=== PATIENT | male | born 1990 | race Caucasian/White ===

== ENCOUNTER 2019-10-29 14:57 | Emergency (ER) | payer OTHER, SELFPAY ==
[2019-10-29 15:25] VITALS: BP 126/74; PULSE 73; RESP 18; TEMP 37.3; O2SAT 100
--- NOTE | 2019-10-29 15:54 | ED.GENADULT ---
HPI - General Adult General Chief complaint: Upper Respiratory Infection Stated complaint: Cold/ Flu symptoms Time Seen by Provider: 10/29/19 15:55 Source: patient and RN notes reviewed Mode of arrival: ambulatory Limitations: no limitations History of Present Illness HPI narrative: This is a 29 years old male presented office for evaluation of flulike symptom for 3-day. Symptoms include feeling malaise, headache, coughing, and vomiting. He has not vomited today.However he does not have very much appetite although she he had a cheeseburger before he come here today. No treatment for his symptoms. He does smoke. Related Data Allergies Allergy/AdvReac Type Severity Reaction Status Date / Time No Known Allergies Allergy Verified 10/29/19 15:39 Review of Systems Review of Systems: Narrative: CONSTITUTIONAL: Reports fever, chills ENT: Reports rhinorrhea, congestion, sore throat, otalgia. CARDIOVASCULAR: Denies chest pain RESPIRATORY: Reports productive cough with thick phlegm. GASTROINTESTINAL: Denies abdominal pain, nausea, vomiting, diarrhea. GENITOURINARY: Denies urinary symptoms SKIN: Denies rash MUSCULOSKELETAL: Denies acute back pain NEUROLOGIC: Denies lightheaded PMFSH Comments At time of signature, I agree with nursing past medical, surgical, social and family history. There is no relevant family history pertinent to the presenting complaint. Exam Narrative: Exam Narrative: GENERAL: This is a well-nourished, well-developed patient, ill apparent but not acute distress. EYES: Sclera clear/white. Vision is grossly intact. EARS: External ears normal, auditory canals clear and without drainage, TMs normal without perforation. Hearing grossly intact. NOSE: External nose normal with no obvious nasal discharge, nares without redness, no rhinorrhea. THROAT: Mucous membranes moist, posterior pharynx edematous with drainage NECK: Neck supple, non-tender without lymphadenopathy, masses or thyromegaly. CARDIOVASCULAR: Regular rate and rhythm without murmurs, gallops, or rubs. RESPIRATORY: Clear to auscultation. Breath sounds equal bilaterally. No wheezes, rales, or rhonchi. GASTROINTESTINAL: Abdomen soft, non-tender, nondistended. Bowel sounds are active. No hepato-splenomegaly, or palpable masses. No guarding. SKIN: warm, intact with no suspicious lesions or rash, good texture and turgor. NEURO: awake, alert, and oriented to person, place and time. There were no obvious focal neurologic abnormalities. Steady gait [place] Coma Scale Eye Opening: Spontaneous 4 [place] Coma Scale Motor: Obeys Commands 6 [place] Coma Scale Verbal: Oriented 5 Course Vital Signs Vital signs: Vital Signs Temperature 99.2 F 10/29/19 15:25 Pulse Rate 73 10/29/19 15:25 Respiratory Rate 18 10/29/19 15:25 Blood Pressure 126/74 10/29/19 15:25 Pulse Oximetry 100 10/29/19 15:25 Temperature 99.2 F 10/29/19 15:25 Pulse Rate 73 10/29/19 15:25 Respiratory Rate 18 10/29/19 15:25 Blood Pressure 126/74 10/29/19 15:25 Pulse Oximetry 100 10/29/19 15:25 Medical Decision Making MDM Narrative Medical decision making narrative: Discharge instructions reviewed with patient, as well as provided in writing per nursing staff. The instructions also include specific and strict return/GO TO THE ER as well as f/u information. All questions have been answered, and the patient deny any further questions with discharge and discharge plan. Differential Diagnosis Differential Diagnosis: pneumonia, Allergic Rhinitis, Upper respiratory cough syndrome, Pharyngitis, Sinusitis, Bronchitis, otitis media, viral URI, Asthma/reactive airway disease, influenza Medical Records Medical records reviewed: Yes I reviewed the patient's medical records. Vital Signs Vital Signs: Vital Signs Temperature 99.2 F 10/29/19 15:25 Pulse Rate 73 10/29/19 15:25 Respiratory Rate 18 10/29/19 15:25 Blood Pressure 126/74 10/29/19 15:25 Pulse
== END 2019-10-29 16:29 | disposition home or self-care (01) ==
PROVIDERS: Emergency Provider Nurse Practitioner
DX: J10.1 Influenza due to other identified influenza virus with other respiratory manifestations (principal)
CPT/HCPCS: 87804; 99213; G0463

== ENCOUNTER 2023-10-13 17:53 | Emergency (ER) | payer OTHER, SELFPAY ==
--- NOTE | 2023-10-13 18:03 | ED.DENTAL ---
HPI - Dental/Oral General Chief complaint: Dental/Oral Stated complaint: Infected Tooth on the right side Time Seen by Provider: 10/13/23 18:12 Source: patient Mode of arrival: ambulatory Limitations: no limitations History of Present Illness HPI Narrative: 33-year-old male presents with concern for right upper dental pain and facial swelling. Reports he has also had sinus pressure, congestion for a while. He denies fever. MD Complaint: tooth pain Related Data Allergies Allergy/AdvReac Type Severity Reaction Status Date / Time No Known Allergies Allergy Verified 10/13/23 18:05 Review of Systems Review of Systems: CONSTITUTIONAL: Denies malaise, chills, sweats, or fever. EYES: Denies visual changes ENT: Reports rhinorrhea, congestion. Reports right upper dental pain and facial swelling CARDIOVASCULAR: Denies chest pain, palpitations RESPIRATORY: Denies cough or dyspnea. SKIN: Denies rash or itching. MUSCULOSKELETAL: Denies myalgia. NEUROLOGIC: Denies numbness, weakness, or headache. All systems reviewed & are unremarkable except as noted in HPI and below PMFSH Comments At time of signature, agree with nursing past medical, surgical, social and family history. There is no relevant family history pertinent to the presenting complaint Exam Narrative: GENERAL: Well-appearing, well-nourished, and in no acute distress. HEAD: Normocephalic, atraumatic. EYES: PERRLA, sclera clear ENT: Nares clear, turbinates pink, no rhinorrhea or epistaxis. Mucous membranes moist. TM pearly hastings with sharp light reflex bilaterally; no tragal tenderness. Oropharynx without erythema or lesions. Tonsils not enlarged and without exudate. Missing teeth, broken teeth, caries, right cheek swelling and tenderness NECK: Supple. No lymphadenopathy. CHEST: No respiratory distress. Speaks in full sentences. HEART: Regular rate and rhythm. SKIN: Warm, dry, no visible rash. NEURO: Alert and oriented x3. PSYCH: Normal mood and affect Course Course Emergency Course: Patient is aware of diagnosis, understands and agrees to treatment plan. Anticipatory guidance given. Patient agrees to follow-up as directed and is aware of reasons to seek care at the emergency department. Portions of this record may have been created with voice recognition software Level of Care: Express Care Visit Vital Signs Vital signs: Reviewed. MDM - Dental/Oral MDM Narrative Medical decision making narrative: Patients pain and complaint coupled with physical findings are consistant with dentalgia. There are no focal signs of space occupying lesions that are compromising to the airway; no dysphagia, odynophagia, dysphonia, or dyspnea. No uvular deviation or soft palate edema. Patient is non-toxic appearing. The floor of the mouth is soft with no signs of Jose E's Angina; no induration below mandible, no neck pain. Patient is without trismus or drooling and able to swallow secretions. Patient is felt appropriate for discharge home with dental follow up. Differential Diagnosis Differential diagnosis: Likely gingival abscess, dental caries, toothache, dental abscess, fracture of tooth and aphthous ulcer Critical Care Time Critical Care Time Critical Care Time: No Discharge Plan Discharge Clinical Impression: Dental abscess Patient Disposition: Home, Self-Care Condition: Stable Instructions: Antibiotic Form, Dental Abscess (ED) Additional Instructions: Take antibiotic as directed Avoid temperature extremes May apply heat or ice to the face Gentle brushing and flossing Take 2 extra strength Tylenol, 4 ibuprofen, 80 mg of caffeine at same time. You can do this every 6 hours. Do not do this for more than 2 - 3 days. You can substitute 25 mg Benadryl at nighttime for caffeine to help you sleep. Do this for no more than 3 days. Follow-up with the dentist as soon as possible - see the list provided Prescriptions: New clindamycin HCl 30
[2023-10-13 18:07] VITALS: BP 131/82; PULSE 78; RESP 16; TEMP 37; O2SAT 99
== END 2023-10-13 18:20 | disposition home or self-care (01) ==
PROVIDERS: Emergency Provider Nurse Practitioner
DX: K04.7 Periapical abscess without sinus (principal)
CPT/HCPCS: 99203; G0463

== ENCOUNTER 2023-11-28 11:09 | Emergency (ER) | payer OTHER, SELFPAY ==
[2023-11-28 11:14] VITALS: BP 127/82; PULSE 69; RESP 16; TEMP 36.8; O2SAT 100
--- NOTE | 2023-11-28 11:29 | ED.DENTAL ---
HPI - Dental/Oral General Chief complaint: Dental/Oral Stated complaint: Toothache Source: patient, RN notes reviewed and old records reviewed Mode of arrival: ambulatory Limitations: no limitations History of Present Illness HPI Narrative: 33-year-old male presents to [facility] right dental 3 days. Patient states he was seen here 1 month for same issue and treated with antibiotics. Patient endorses that he and his had had a difficult time getting in to a dentist quickly. Patient has an appt in February. Pt denies fever, nausea, vomiting. Pt has treated at home with ibuprofen with some relief. Patient able to control secretions, patient able to tolerate fluids by mouth. Related Data Allergies Allergy/AdvReac Type Severity Reaction Status Date / Time No Known Allergies Allergy Verified 11/28/23 11:25 Review of Systems Review of Systems: All systems reviewed & are unremarkable except as noted in HPI and below Constitutional: Constitutional: Reports as per HPI, Denies chills, Denies fever(s) and Denies night sweats Eyes: Eyes: Reports no additional eye complaints ENT: Reports system reviewed and no additional complaints, except as documented, Reports dental pain, Reports facial pain, Denies headache(s), Reports mouth pain and Denies sore throat Cardiovascular: Cardiovascular: Reports no additional cardiovascular complaints, Denies chest pain and Denies dyspnea Respiratory: Respiratory: Reports no additional respiratory complaints, Denies cough and Denies dyspnea Musculoskeletal: Musculoskeletal: Reports no additional musculoskeletal complaints Neurologic: Reports system reviewed and no additional complaints, except as documented Psychiatric: Psychiatric: Reports no additional psychiatric complaints PMFSH Comments At the time of my signature, I reviewed and agree with the nursing past medical, surgical, social, and family history. There is no relevant family history pertinent to the patient complaint. Exam Const: General: cooperative, healthy appearing, comfortable, no acute distress, alert and well nourished Nutritional Appearance: well nourished Orientation/consciousness: patient oriented x3 Limitations: no limitations HENMT: Head: normal to inspection Ears: external ears normal Face/Nose/Sinus: Normal external nose present, Normal nares present, normal facial exam, No erythema and No edema Face and sinus: normal facial exam, no erythema and no edema Mouth: Yes tongue normal, Yes moist mucous membranes and Yes Abnormal oral and palatal mucosa present Teeth and gingiva: abnormal tooth and associated gingiva, caries, gingiva abnormal edematous, diffusely erythematous and tender and poor dentition Throat: posterior oropharynx normal, tonsils normal and uvula midline Eyes: General: appearance normal, both eyes and all related structures Neck: Neck: normal visual inspection, full ROM and no meningeal signs Lymphatic: no lymphadenopathy noted and no lymphedema noted Chest: Chest palpation & inspection: normal inspection of the chest Resp: Effort & Inspection: normal respiratory effort and able to speak in complete sentences Auscultation: clear to auscultation bilaterally Cardio: Jugular venous distension: no JVD Rate: regular rate Rhythm: regular rhythm Back/Spine/Pelvis: Cervical Spine: cervical ROM normal Skin: General skin exam: normal color, no rashes or lesions noted and turgor normal Neuro: General: patient oriented x3, gait normal, moves all extremities and no meningeal signs Speech: normal speech Gait exam (Neuro): Normal gait present Extrem: General: normal to inspection, full ROM and capillary refill normal Psych: Appearance: grossly normal and well kempt Course Course Emergency Course: Some parts of this dictation were generated by voice recognition software and may contain typographical and/or grammatical inaccuracies. Level of Care: Express Care Visit Vital Signs Vital signs: Vi
== END 2023-11-28 11:37 | disposition home or self-care (01) ==
PROVIDERS: Emergency Provider Nurse Practitioner Family
DX: K05.10 Chronic gingivitis, plaque induced (principal); K02.9 Dental caries, unspecified; K04.7 Periapical abscess without sinus; S02.5XXB Fracture of tooth (traumatic), initial encounter for open fracture; X58.XXXA Exposure to other specified factors, initial encounter
CPT/HCPCS: 99213; G0463

== ENCOUNTER 2024-02-23 15:10 | Emergency (ER) | payer OTHER, SELFPAY ==
[2024-02-23 15:20] VITALS: BP 122/73; PULSE 69; RESP 16; TEMP 36.8; O2SAT 100
--- NOTE | 2024-02-23 16:03 | ED.DENTAL ---
HPI - Dental/Oral General Chief complaint: Dental/Oral Stated complaint: Tooth pain Time Seen by Provider: 02/23/24 16:03 Source: patient, RN notes reviewed and old records reviewed Mode of arrival: ambulatory Limitations: no limitations History of Present Illness HPI Narrative: 33-year-old male to Express Care for left upper molar pain for 1 day. Patient reports open fracture to seen to several months ago with intermittent pain. Patient reports the pain became acutely worse yesterday. Patient has attempted to treat at home with ibuprofen. Patient reports new onset swelling to left maxillary area. patient denies fever, sore throat, difficulty swallowing, cough, jaw pain, drainage from tooth. Patient able to tolerate fluids by mouth. Respirations even and nonlabored. Patient in no acute distress. Related Data Allergies Allergy/AdvReac Type Severity Reaction Status Date / Time No Known Allergies Allergy Verified 11/28/23 11:25 Review of Systems Review of Systems: All systems reviewed & are unremarkable except as noted in HPI and below Constitutional: Constitutional: Reports no additional constitutional complaints Eyes: Eyes: Reports no additional eye complaints ENT: Reports as per HPI, Reports dental pain and Reports facial pain ( Left maxillary) Cardiovascular: Cardiovascular: Reports no additional cardiovascular complaints, Denies chest pain and Denies dyspnea Respiratory: Respiratory: Reports no additional respiratory complaints, Denies cough and Denies dyspnea Musculoskeletal: Musculoskeletal: Reports no additional musculoskeletal complaints Neurologic: Reports system reviewed and no additional complaints, except as documented Psychiatric: Psychiatric: Reports no additional psychiatric complaints PMFSH Comments At the time of my signature, I reviewed and agree with the nursing past medical, surgical, social, and family history. There is no relevant family history pertinent to the patient complaint. Exam Const: General: cooperative, healthy appearing, no acute distress, well developed, alert, uncomfortable, well groomed and well nourished Nutritional Appearance: well nourished Orientation/consciousness: patient oriented x3 Limitations: no limitations HENMT: Head: normal to inspection Ears: external ears normal Face/Nose/Sinus: Normal external nose present, Normal nares present, normal facial exam, No erythema and No edema Face and sinus: normal facial exam, no erythema and no edema Mouth: Yes Normal oral and palatal mucosa present Teeth and gingiva: caries, gingiva abnormal diffusely erythematous and receding; not edematous and without any purulent discharge, multiple restorations and poor dentition Throat: posterior oropharynx normal Eyes: General: appearance normal, both eyes and all related structures Neck: Neck: normal visual inspection, full ROM and no meningeal signs Lymphatic: no lymphadenopathy noted and no lymphedema noted Chest: Chest palpation & inspection: normal inspection of the chest Resp: Effort & Inspection: normal respiratory effort and able to speak in complete sentences Cardio: Jugular venous distension: no JVD Rate: regular rate Rhythm: regular rhythm Back/Spine/Pelvis: Cervical Spine: cervical ROM normal Skin: General skin exam: normal color, no rashes or lesions noted and turgor normal Neuro: General: patient oriented x3, gait normal, moves all extremities and no meningeal signs Speech: normal speech Gait exam (Neuro): Normal gait present Extrem: General: full ROM Psych: Appearance: grossly normal and well kempt Course Course Emergency Course: Some parts of this dictation were generated by voice recognition software and may contain typographical and/or grammatical inaccuracies. Level of Care: Express Care Visit Vital Signs Vital signs: Vital Signs Temperature 36.8 C 02/23/24 15:20 Pulse Rate 69 02/23/24 15:20 Respiratory Rate 16 02/23/24 15
== END 2024-02-23 16:12 | disposition home or self-care (01) ==
PROVIDERS: Emergency Provider Nurse Practitioner Family
DX: S02.5XXA Fracture of tooth (traumatic), initial encounter for closed fracture (principal); X58.XXXA Exposure to other specified factors, initial encounter; K04.7 Periapical abscess without sinus
CPT/HCPCS: 99213; G0463